=== PATIENT | male | born 1935 | race Caucasian/White ===

== ENCOUNTER 2017-12-06 13:23 | Inpatient (IN) | payer MEDICARE, BC ==
[~2017-12-06] VITALS: Ht 175.4 cm; Wt 92.9 kg
[~2017-12-06 13:23] MED LIST: ALDACTONE 25MG25 M1 PO; ALLEGRA180 MG PO; ASPIRIN 81M81 MG/TA2 PO; ASPIRIN E.C. 8181 MG PO; BETAPACE 80MG80 MG PO; BRILINTA90 MG PO; CAPOTEN 12.512.5 MG PO; COUMADIN 2MG2 MG/TAB; COUMADIN 3MG3 MG/TAB PO; COUMADIN 5MG5 MG/TAB PO; COUMADIN1 MG PO; CRESTOR40 MG PO; FLOMAX 0.40.4 MG/CAP PO; IRON324 M1 PO; LANOXIN0.25 MG PO; LIPITOR20 MG PO; LOPRESSOR 550 MG/TAB PO; LOVENOX 100100 MG/ML SQ; MASON NATURAL1200 MG PO; METOPROLOL SR100 MG PO; MULTIPLE VITAMI1 CAP PO; NORCO 325 MG-51 TAB PO; OMEGA-3 FISH1200 MG PO; PERCOCET 325 MG1 TA2 PO; PROVENTIL0.09 MG/A1 IH; PYRIDIUM 100MG100 MG PO; RED YEAST RICE600 MG PO; SUPER EPA 1201200 MG PO; TRICOR145 MG PO; TRILIPIX 135MG PO; VISION VITAMINS1 TA1 PO; ZESTRIL 10MG10 MG PO; ZYRTEC 10MG10 MG PO
[2017-12-06 14:05] LABS: HEMATOCRIT 43.2 % (42.0-52.0); HEMOGLOBIN 14.6 g/dl (13.5-18.0); MEAN CELL VOLUME 90 fl (80.0-100.0); MEAN CORPUSCULAR HEMOGLOBIN 30 pg (27.0-31.0); MEAN CORPUSCULAR HGB CONC 34 g/dl (33.0-37.0); MEAN PLATELET VOLUME 10.4 fl (7.4-10.4); PLATELET COUNT 281 K/mm3 (130-400); RED BLOOD COUNT 4.81 M/mm3 (4.20-5.60); REDCELL DISTRIBUTION WIDTH-CV 13.3 % (11.5-14.5)
[2017-12-06 14:15] LABS: ALBUMIN 4.1 gm/dL (3.5-5.0); BILIRUBIN,TOTAL 0.6 mg/dL (0.0-1.0); CALCIUM 9.1 mg/dL (8.4-10.2); CREATININE, serum 1.41 mg/dL (0.66-1.25); MAGNESIUM 1.9 mg/dL (1.6-2.3); PHOSPHOROUS 3.3 mg/dL (2.5-4.5); POTASSIUM 4.4 mmol/L (3.4-5.0); TOTAL PROTEIN 7.1 gm/dL (6.4-8.2)
[2017-12-06 14:30] LABS: TROPONIN-I 0.073 ng/mL (0.000-0.034)
[2017-12-06 14:45] LABS: TSH w REFLEX 1.68 uIU/mL (0.465-4.680)
[2017-12-06 15:05] LABS: BAND 2 % (0-10); EOSINOPHIL 3 % (0-4); LYMPHOCYTE 47 % (20.0-51.0); NEUTROPHILS 44 % (42.0-75.2); PLATELET ESTIMATE NORMAL (NORMAL)
[2017-12-06 15:42] LABS: PARTIAL THROMBOPLASTIN TIME 28.5 SECONDS (26.0-37.0)
[2017-12-06] MEDS ORDERED: LIPITOR20 MG PO (16:32)
[2017-12-06] MEDS ORDERED: PLAVIX 75MG TAB75 MG PO (16:33)
[2017-12-06] MEDS ORDERED: FLORAJEN A20 Billion PO (16:33)
[2017-12-06] MEDS ORDERED: TOPROL XL 25MG25 MG PO (16:34)
[2017-12-06] MEDS ORDERED: TIKOSYN0.25 MG PO (16:34)
[2017-12-06] MEDS ORDERED: FLONASEALLERGY NS (16:37)
[2017-12-06] MEDS ORDERED: ZYRTEC 10MG10 MG PO (16:38)
[2017-12-06] MEDS ORDERED: ALLEGRA ALLERG180 MG PO (16:39)
[2017-12-06] MEDS ORDERED: MULTIPLE VITAMI1 TA5 PO (16:39)
[2017-12-06] MEDS ORDERED: VISION VITAMINS1 TA1 PO (16:39)
[2017-12-06 17:32] VITALS: BP 125/79; PULSE 53; TEMP 97.8
[2017-12-06 17:39] LABS: PH 5 (5-8); SQUAMOUS EPITHELIAL None Seen /hpf; URINE APPEARANCE Clear; URINE BACTERIA None Seen /hpf; URINE BILIRUBIN Negative (NEGATIVE); URINE BLOOD Negative (NEGATIVE); URINE COLOR Yellow; URINE GLUCOSE Negative (NEGATIVE); URINE KETONE Negative (NEGATIVE); URINE LEUKOCYTE ESTERASE Negative (NEGATIVE); URINE NITRATE Negative (NEGATIVE); URINE PROTEIN(semi-quant) Negative (NEGATIVE); URINE RBC 0-2 /hpf; URINE UROBILINOGEN Negative (NEGATIVE)
[2017-12-06 19:11] LABS: COLLECTION METHOD CLEAN CATCH
[2017-12-06 20:46] LABS: TROPONIN-I 6 HR POST INITIAL 0.062 ng/mL (0.000-0.034)
[2017-12-06 21:23] VITALS: BP 121/62; PULSE 95; TEMP 98.1
[2017-12-07] VITALS (8 sets, daily range): BP systolic 82–143; BP diastolic 40–81; PULSE 58–106; TEMP 97.4–98.2
[2017-12-07 01:05] LABS: CREATINE KINASE < 20 U/L (55-170)
[2017-12-07 01:18] LABS: TROPONIN-I 0.053 ng/mL (0.000-0.034)
[2017-12-07 06:59] LABS: INR 1.1 (0.8-3.0); PROTHROMBIN TIME 13.1 SECONDS (9.7-12.8)
[2017-12-07 07:01] LABS: HEMATOCRIT 43.1 % (42.0-52.0); HEMOGLOBIN 14.2 g/dl (13.5-18.0); MEAN CELL VOLUME 90 fl (80.0-100.0); MEAN CORPUSCULAR HEMOGLOBIN 30 pg (27.0-31.0); MEAN CORPUSCULAR HGB CONC 33 g/dl (33.0-37.0); MEAN PLATELET VOLUME 10.5 fl (7.4-10.4); PLATELET COUNT 272 K/mm3 (130-400); REDCELL DISTRIBUTION WIDTH-CV 13.4 % (11.5-14.5)
[2017-12-07 07:05] LABS: ALANINE AMINOTRANSFERASE 38 U/L (21-72); ALBUMIN 3.6 gm/dL (3.5-5.0); ALKALINE PHOSPHATASE 94 U/L (50-136); ANION GAP 8 mmol/L (7-16); AST,SGOT 28 U/L (15-37); BILIRUBIN,TOTAL 0.5 mg/dL (0.0-1.0); BLOOD UREA NITROGEN 37 mg/dL (9-20); CALCIUM 8.6 mg/dL (8.4-10.2); CARBON DIOXIDE 24 mmol/L (22-30); CHLORIDE 107 mmol/L (98-107); CREATININE, serum 1.43 mg/dL (0.66-1.25); GLUCOSE 108 mg/dL (74-106); POTASSIUM 3.9 mmol/L (3.4-5.0); SODIUM 140 mmol/L (137-145); TOTAL PROTEIN 6.4 gm/dL (6.4-8.2)
[2017-12-07 07:32] LABS: TROPONIN-I 0.038 ng/mL (0.000-0.034)
[2017-12-07 08:02] LABS: BAND 15 % (0-10); EOSINOPHIL 1 % (0-4); LYMPHOCYTE 54 % (20.0-51.0); NEUTROPHILS 30 % (42.0-75.2); PLATELET ESTIMATE NORMAL (NORMAL)
[2017-12-07 08:09] LABS: CREATINE KINASE < 20 U/L (55-170)
[2017-12-08] VITALS (10 sets, daily range): BP systolic 100–135; BP diastolic 44–65; PULSE 56–76; TEMP 97.2–98.1
[2017-12-08 07:30] LABS: HEMATOCRIT 40.7 % (42.0-52.0); HEMOGLOBIN 13.4 g/dl (13.5-18.0); MEAN CELL VOLUME 91 fl (80.0-100.0); MEAN CORPUSCULAR HEMOGLOBIN 30 pg (27.0-31.0); MEAN CORPUSCULAR HGB CONC 33 g/dl (33.0-37.0); MEAN PLATELET VOLUME 10.6 fl (7.4-10.4); PLATELET COUNT 270 K/mm3 (130-400); RED BLOOD COUNT 4.46 M/mm3 (4.20-5.60); REDCELL DISTRIBUTION WIDTH-CV 13.5 % (11.5-14.5)
[2017-12-08 07:48] LABS: CALCIUM 8.5 mg/dL (8.4-10.2); CREATININE, serum 1.52 mg/dL (0.66-1.25); POTASSIUM 4.2 mmol/L (3.4-5.0)
[2017-12-08 07:50] LABS: INR 1.2 (0.8-3.0); PROTHROMBIN TIME 13.6 SECONDS (9.7-12.8)
[2017-12-08 10:18] LABS: BAND 18 % (0-10); LYMPHOCYTE 55 % (20.0-51.0); NEUTROPHILS 27 % (42.0-75.2); PLATELET ESTIMATE NORMAL (NORMAL)
[2017-12-09 00:29] VITALS: BP 126/62; PULSE 99; TEMP 98.3
[2017-12-09 03:05] VITALS: BP 123/53; PULSE 60; TEMP 98.4
[2017-12-09 07:47] VITALS: BP 135/62; PULSE 60; TEMP 97.8
[2017-12-09 08:01] LABS: HEMATOCRIT 43.1 % (42.0-52.0); INR 1.3 (0.8-3.0); MEAN CELL VOLUME 92 fl (80.0-100.0); MEAN CORPUSCULAR HEMOGLOBIN 30 pg (27.0-31.0); MEAN CORPUSCULAR HGB CONC 33 g/dl (33.0-37.0); MEAN PLATELET VOLUME 10.8 fl (7.4-10.4); PLATELET COUNT 289 K/mm3 (130-400); PROTHROMBIN TIME 14.7 SECONDS (9.7-12.8); RED BLOOD COUNT 4.68 M/mm3 (4.20-5.60); REDCELL DISTRIBUTION WIDTH-CV 13.7 % (11.5-14.5)
[2017-12-09 08:07] LABS: CALCIUM 8.7 mg/dL (8.4-10.2); CREATININE, serum 1.43 mg/dL (0.66-1.25)
[2017-12-09 10:31] LABS: BAND 7 % (0-10); BASOPHIL 3 % (0-2); EOSINOPHIL 1 % (0-4); LYMPHOCYTE 55 % (20.0-51.0); NEUTROPHILS 30 % (42.0-75.2)
[2017-12-09 10:32] LABS: PLATELET ESTIMATE NORMAL (NORMAL)
[2017-12-09 11:53] VITALS: BP 144/73; PULSE 57; TEMP 97.8
[2017-12-09 16:24] VITALS: BP 145/45; PULSE 57; TEMP 98.8
[2017-12-09 19:54] VITALS: BP 147/49; PULSE 58; TEMP 97.6
[2017-12-10] VITALS: BP 135/58; PULSE 62; TEMP 98.3
[2017-12-10 04:18] VITALS: BP 131/56; PULSE 55; TEMP 98
[2017-12-10 06:43] LABS: HEMATOCRIT 39.5 % (42.0-52.0); HEMOGLOBIN 12.8 g/dl (13.5-18.0); MEAN CELL VOLUME 92 fl (80.0-100.0); MEAN CORPUSCULAR HEMOGLOBIN 30 pg (27.0-31.0); MEAN CORPUSCULAR HGB CONC 32 g/dl (33.0-37.0); MEAN PLATELET VOLUME 10.6 fl (7.4-10.4); PLATELET COUNT 251 K/mm3 (130-400); RED BLOOD COUNT 4.31 M/mm3 (4.20-5.60); REDCELL DISTRIBUTION WIDTH-CV 13.3 % (11.5-14.5)
[2017-12-10 06:50] LABS: INR 1.6 (0.8-3.0); PROTHROMBIN TIME 18.9 SECONDS (9.7-12.8)
[2017-12-10 06:54] LABS: CALCIUM 8.6 mg/dL (8.4-10.2); CREATININE, serum 1.36 mg/dL (0.66-1.25); POTASSIUM 4.2 mmol/L (3.4-5.0)
[2017-12-10 08:05] LABS: BAND 8 % (0-10); BASOPHIL 2 % (0-2); EOSINOPHIL 2 % (0-4); LYMPHOCYTE 57 % (20.0-51.0); NEUTROPHILS 30 % (42.0-75.2); PLATELET ESTIMATE NORMAL (NORMAL)
[2017-12-10 08:36] VITALS: BP 140/38; PULSE 63; TEMP 97.5
[2017-12-10] MEDS ORDERED: COUMADIN 5MG5 MG/TAB PO (09:55)
[2017-12-10] MEDS ORDERED: LOVENOX120 MG/0.8 SQ (09:55)
== END 2017-12-10 14:09 | disposition home or self-care (01) | DRG 281 ==
LOC: COL.ER 13:23 → MEDICAL 15:25
PROVIDERS: Emergency Medicine; Family Medicine; Internal Medicine Cardiovascular Disease; Nurse Practitioner Family; Physician Assistant
PROC: 5A2204Z Restoration of Cardiac Rhythm, Single (ICD-10-PCS; principal; 2017-12-07)
DX: I48.0 Paroxysmal atrial fibrillation (principal); I21.4 Non-ST elevation (NSTEMI) myocardial infarction; C91.10 Chronic lymphocytic leukemia of B-cell type not having achieved remission; I12.9 Hypertensive chronic kidney disease with stage 1 through stage 4 chronic kidney disease, or unspecified chronic kidney disease; N18.9 Chronic kidney disease, unspecified; I25.10 Atherosclerotic heart disease of native coronary artery without angina pectoris; Z85.51 Personal history of malignant neoplasm of bladder; Z87.891 Personal history of nicotine dependence; Z95.5 Presence of coronary angioplasty implant and graft; N40.1 Benign prostatic hyperplasia with lower urinary tract symptoms; R35.0 Frequency of micturition
CPT/HCPCS: 99232-AI; 99233-AI; 99239; A9502; G0378; G8987-GO; G8989-GO; J1650; J1940; J2250; J2785; J3010

== ENCOUNTER 2018-01-04 10:07 | Day surgery (SDC) | payer MEDICARE, BC ==
[~2018-01-04] VITALS: Ht 175.6 cm; Wt 90.0 kg
[2018-01-04] VITALS (7 sets, daily range): BP systolic 110–129; BP diastolic 40–94; PULSE 53–103; TEMP 97.8–97.9
[~2018-01-04 10:07] MED LIST changes: +ALLEGRA ALLERG180 MG PO; +FLONASEALLERGY NS; +FLORAJEN A20 Billion PO; +LOVENOX120 MG/0.8 SQ; +MULTIPLE VITAMI1 TA5 PO; +PLAVIX 75MG TAB75 MG PO; +TIKOSYN0.25 MG PO; +TOPROL XL 25MG25 MG PO
[2018-01-04 11:10] LABS: HEMATOCRIT 45.2 % (42.0-52.0); HEMOGLOBIN 14.7 g/dl (13.5-18.0); MEAN CELL VOLUME 90 fl (80.0-100.0); MEAN CORPUSCULAR HEMOGLOBIN 29 pg (27.0-31.0); MEAN CORPUSCULAR HGB CONC 33 g/dl (33.0-37.0); MEAN PLATELET VOLUME 10.5 fl (7.4-10.4); PLATELET COUNT 281 K/mm3 (130-400); REDCELL DISTRIBUTION WIDTH-CV 13.9 % (11.5-14.5)
[2018-01-04 11:15] LABS: INR 1.1 (0.8-3.0); PROTHROMBIN TIME 12.3 SECONDS (9.7-12.8)
[2018-01-04 11:31] LABS: CALCIUM 9.1 mg/dL (8.4-10.2); CREATININE, serum 1.3 mg/dL (0.66-1.25); POTASSIUM 4.5 mmol/L (3.4-5.0)
[2018-01-04] MEDS ORDERED: PLAVIX 75MG TAB75 MG PO (12:18)
[2018-01-04] MEDS ORDERED: COUMADIN 5MG5 MG/TAB PO (13:25)
== END 2018-01-04 15:16 | disposition home or self-care (01) ==
LOC: COL.CAR 10:07
PROVIDERS: Internal Medicine Cardiovascular Disease
DX: I48.0 Paroxysmal atrial fibrillation (principal); I34.0 Nonrheumatic mitral (valve) insufficiency; I25.5 Ischemic cardiomyopathy; E78.5 Hyperlipidemia, unspecified; J44.9 Chronic obstructive pulmonary disease, unspecified; I12.9 Hypertensive chronic kidney disease with stage 1 through stage 4 chronic kidney disease, or unspecified chronic kidney disease; N18.9 Chronic kidney disease, unspecified; Z79.01 Long term (current) use of anticoagulants; Z79.82 Long term (current) use of aspirin; Z88.8 Allergy status to other drugs, medicaments and biological substances; Z87.891 Personal history of nicotine dependence; Z85.51 Personal history of malignant neoplasm of bladder
CPT/HCPCS: G9654; J2704

== ENCOUNTER 2019-09-06 08:42 | Observation (INO) | payer MEDICARE, BC ==
[~2019-09-06] VITALS: Ht 175.3 cm; Wt 90.5 kg
[2019-09-06] VITALS (310 sets, daily range): BP systolic 115–161; BP diastolic 72–100; PULSE 58–95; TEMP 97.4–98.4; O2SAT 83–99
[2019-09-06] MEDS ORDERED: MAGNESIUM250 M1 PO (09:15)
[2019-09-06] MEDS ORDERED: ASPIRIN E.C. 8181 MG PO (09:15)
[2019-09-06] MEDS ORDERED: PRILOSEC10 MG PO (09:16)
[2019-09-06] MEDS ORDERED: COZAAR 50MG50 MG/TAB PO (09:16)
[2019-09-06] MEDS ORDERED: ZYRTEC 10MG10 MG PO (09:17)
[2019-09-06 09:45] LABS: HEMATOCRIT 43.7 % (42.0-52.0); MEAN CELL VOLUME 87 fl (80.0-100.0); MEAN CORPUSCULAR HEMOGLOBIN 28 pg (27.0-31.0); MEAN CORPUSCULAR HGB CONC 32 g/dl (33.0-37.0); MEAN PLATELET VOLUME 10.1 fl (7.4-10.4); PLATELET COUNT 269 K/mm3 (130-400); REDCELL DISTRIBUTION WIDTH-CV 15.3 % (11.5-14.5)
[2019-09-06 09:52] LABS: CALCIUM 8.6 mg/dL (8.4-10.2); CREATININE, serum 1.3 (0.66-1.25); POTASSIUM 4.2 mmol/L (3.4-5.0)
[2019-09-06 09:55] LABS: PROTHROMBIN TIME 11.6 SECONDS (9.7-12.8)
--- NOTE | 2019-09-06 11:24 | NUR ---
ALL MEDICATIONS GIVEN VORB WITH MD. SEE MERGE FOR ALL MEDICATION ADMIN TIMES. SEE MERGE FOR ALL RASS ASSESSMENTS DURING AND POST PROCEDURE. NITRO PASTE APPLIED PRIOR TO PROCEDURE,REFER TO MAR.
--- NOTE | 2019-09-06 14:23 | NUR ---
SENIOR MEDICAL BILLING SPECIALIST student met with the patient and his Tracie to discuss a discharge plan. The patient lives in [place] with his , Tracie. The patient does not use DME and reports independence with ADLs. The patient's PCP is VINNY Rodriguez and receives medications from [facility] with no difficulties. The patient has advanced directives in the EMR. The patient plans to return home upon discharge with Tracie providing transportation. SW will continue to follow to ensure a safe discharge.
--- NOTE | 2019-09-06 15:36 | NUR ---
PT C/O CONTINUED PAGED [id number]: RETURNED CALL FROM WITH ORDERS.
--- NOTE | 2019-09-06 19:20 | NUR ---
REPORT GIVEN TO FINN CUEAVS.
[2019-09-07] VITALS (761 sets, daily range): BP systolic 102–156; BP diastolic 60–103; PULSE 90–114; TEMP 97.4–98.6; O2SAT 81–99
[2019-09-07 06:17] LABS: HEMATOCRIT 45.5 % (42.0-52.0); HEMOGLOBIN 14.7 g/dl (13.5-18.0); MEAN CELL VOLUME 85 fl (80.0-100.0); MEAN CORPUSCULAR HEMOGLOBIN 28 pg (27.0-31.0); MEAN CORPUSCULAR HGB CONC 32 g/dl (33.0-37.0); MEAN PLATELET VOLUME 10.3 fl (7.4-10.4); PLATELET COUNT 284 K/mm3 (130-400); RED BLOOD COUNT 5.33 M/mm3 (4.20-5.60); REDCELL DISTRIBUTION WIDTH-CV 15.3 % (11.5-14.5)
[2019-09-07 06:32] LABS: CALCIUM 8.9 mg/dL (8.4-10.2); CREATININE, serum 1.18 (0.66-1.25); POTASSIUM 4.1 mmol/L (3.4-5.0)
[2019-09-07 06:56] LABS: BAND 2 % (0-10); EOSINOPHIL 2 % (0-4); LYMPHOCYTE 39 % (20.0-51.0); NEUTROPHILS 51 % (42.0-75.2); PLATELET ESTIMATE NORMAL (NORMAL)
--- NOTE | 2019-09-07 08:00 | NUR ---
PT A&O X4, DENIES PAIN, BUT STATES HE WAS HAVING TROUBLE BREATHING DURING THE NIGHT ESPECIALLY WHEN LAYING DOWN; CURRENTLY VSS. RIGHT RADIAL SITE IS STILL COVERED FROM YESTERDAYS BANDAGE WITH 2X2 GAUZE WITH TEGADERM COVERING; ONE PEA-SIZED SPOT OF DRIED DRAINAGE FROM 1900 LAST PM (CIRCLED WITH MARKER FROM NIGHT-SHIFT NURSE).
--- NOTE | 2019-09-07 10:28 | NUR ---
Initial visit; Patient and his thanked Talent Development Consultant for looking in on him and offering encouragement and prayer. Talent Development Consultant will keep him in her prayers.
--- NOTE | 2019-09-07 15:20 | NUR ---
PT STOOD UP TO USE URINAL AND LIKE ALL TIMES TODAY WHEN PT STANDS IS TACHYCARDIC. HOWEVER, ON THIS OCCATION HR WAS SUSTAINED FOR TEN MINUTES OVER 120-146. WAS CONTACTED; PT TO ORALLY HYDRATE AND WILL REMAIN IMCU STATUS. WILL CONTINUE TO MONITOR PT.
--- NOTE | 2019-09-07 23:48 | NUR ---
PT RESTING IN BED VSS AT THIS TIME, DENIES PAIN AND SOA. PT ABLE TO STAND AT BEDSIDE TO USE URINAL INDEPENDENTLY. PT REMAINS ON O2 @ 2L. WILL CONTINUE TO MONITOR PT STATUS AND UPDATE PROVIDERS NEEDED.
[2019-09-08] VITALS (294 sets, daily range): BP systolic 118–134; BP diastolic 71–87; PULSE 75–95; TEMP 97.4–98.4; O2SAT 89–98
--- NOTE | 2019-09-08 07:30 | NUR ---
Report received from FINN Padilla.
--- NOTE | 2019-09-08 08:00 | NUR ---
Assessment completed. Pt in bed, awake. Denies any pain at this time. HR Afib on monitor. Denies any SOB at this time. Right radial dressing with old drainage noted. No hematoma noted. Discussed plan of care with pt r/t medications on shift and possible discharge today. pt verbalized understanding. Pt education done on CHF. Discussed s/s to look for, weighing himself every day, looking for edema and signs of SOB. Pt states he does not weigh himself or check BP every day. Explained importance of checking weight and monitoring BP. Pt's stated he will start checking weight and BP at home. Call light in reach, breakfast ordered.
[2019-09-08] MEDS ORDERED: TOPROL XL 50MG50 MG PO (09:40)
[2019-09-08] MEDS ORDERED: BRILINTA90 MG PO (09:40)
--- NOTE | 2019-09-08 10:08 | NUR ---
Called Dr Sevilla's nurse, Antonette. Pt's SBP 80s. HR Afib 90s. Pt c/o being tired. Will discuss with Dr Sevilla and call back.
--- NOTE | 2019-09-08 10:11 | NUR ---
Dr Sevilla's nurse Antonette called back. Dr Sevilla for pt to go home if he is not symptomatic with SBP 80s.
--- NOTE | 2019-09-08 10:16 | NUR ---
Assisted pt out of chair to toilet. Pt denies any dizzyness or feeling lightheaded. Pt's in room with him. CAll light in reach.
--- NOTE | 2019-09-08 10:36 | NUR ---
Pt back to chair. Denies any dizzyness or feeling lightheaded. Pharmacist in room explaining new medications with pt and pt's in room.
--- NOTE | 2019-09-08 10:59 | NUR ---
Discussed discharge paperwork, education, medications and follow up appointments with pt and pt's . Answered all questions to pt's satisfcation. Pt verbalized understanding. Pt will weight himself and check his BP at home. Pt signed discharge forms.
--- NOTE | 2019-09-08 11:05 | NUR ---
Pt discharged from ICU. Pt left unit via wheelchair to POV driven by spouse.
== END 2019-09-08 11:05 | disposition home or self-care (01) ==
LOC: COL.CAR 08:42 → ICU 12:17 → COL.CAR 09-07 12:48 → ICU 09-07 12:48
PROVIDERS: Nurse Practitioner; ADMIT Internal Medicine Cardiovascular Disease
DX: I25.10 Atherosclerotic heart disease of native coronary artery without angina pectoris (principal); Z95.5 Presence of coronary angioplasty implant and graft; I48.20 Chronic atrial fibrillation, unspecified; R94.39 Abnormal result of other cardiovascular function study; Z85.51 Personal history of malignant neoplasm of bladder; M10.9 Gout, unspecified; Z85.6 Personal history of leukemia; Z88.8 Allergy status to other drugs, medicaments and biological substances; Z79.82 Long term (current) use of aspirin; Z79.51 Long term (current) use of inhaled steroids; E78.2 Mixed hyperlipidemia; Z88.0 Allergy status to penicillin
CPT/HCPCS: OP; C1769; C1874; C1887; C9600; G0378; J0583; J1644; J1940; J2250; J3010; Q9967

== ENCOUNTER 2020-08-06 08:13 | Day surgery (SDC) | payer MEDICARE, BC ==
[2020-08-06] VITALS (12 sets, daily range): BP systolic 113–142; BP diastolic 56–92; PULSE 53–82; TEMP 97.4–98
[~2020-08-06] VITALS: Ht 175.3 cm; Wt 93.2 kg
[~2020-08-06 08:13] MED LIST changes: +COZAAR 50MG50 MG/TAB PO; +MAGNESIUM250 M1 PO; +PRILOSEC10 MG PO; +TOPROL XL 50MG50 MG PO
[2020-08-06] MEDS ORDERED: COZAAR 25MG25 MG/TAB PO (09:06)
[2020-08-06] MEDS ORDERED: TOPROL XL100 MG PO (09:08)
[2020-08-06] MEDS ORDERED: PROTONIX20 MG PO (09:10)
[2020-08-06] MEDS ORDERED: PLAVIX 75MG TAB75 MG PO (09:10)
[2020-08-06] MEDS ORDERED: OCEAN NASAL SPR45 ML NS (09:11)
--- NOTE | 2020-08-06 12:30 | NUR ---
Patient up to room 346 by bed from OR. Alert and oriented x 3. Assessment complete. [place] to dependent drainge with CBI infusing at slow rate, urine pink tinged. Post op VSS. Fluids infusing per orders to left hand IV. Denies further needs at this time. Will continue to monitor.
--- NOTE | 2020-08-06 14:46 | NUR ---
Patient complains of pain 8/10 and feeling like he needs to pee. Urine flowing freely, CBI continues to infuse at slow rate. Contacted Dr. Garrett for orders. Medication given per orders. Will continue to monitor.
--- NOTE | 2020-08-06 18:04 | NUR ---
Patient has done well throughout the day. [place] maintained to dependent drainage with clear pink urine in bag. Urine occassionally dark when up out of bed. Spouse at bedside throughout the day. Denies pain at this time. CBI continues infusing at slow rate. Denies further needs at this time. Will report off to bioengineer.
--- NOTE | 2020-08-06 21:30 | NUR ---
PT IN BED. TAKES HS MEDS AT THIS TIME INCLUDING PERCOCET FOR PAIN. IS ALERT AND ORIENTED X4. FLUIDS CAPPED TO LEFT HAND AT THIS TIME. TAKING ORAL FLUIDS WELL. HAS BLANCHARD TO BSD WITH CBI INFUSING, URINE IS PINK, CBI SLOW. BLANCHARD CARES PROVIDED.
--- NOTE | 2020-08-07 03:00 | NUR ---
PT DENIES NEED FOR PAIN MEDS AT THIS TIME.
[2020-08-07 04:13] VITALS: BP 127/61; PULSE 76; TEMP 97.6
--- NOTE | 2020-08-07 06:08 | NUR ---
Primed fong catheter with 200cc of sterile saline. Removed catheter after deflating balloon. Pt instructed on use of urinal and 6 cup specimens. Up in room at this time.
--- NOTE | 2020-08-07 07:30 | NUR ---
Patient resting in bedside recliner at this time. Patient is alert and oriented, answers questions appropriately. Patient voided approximately 150 ml of bloody urine. Patient reports burning with urination and states he feels that it is hard to void. Encouraged patient to drink plenty of fluids and discussed the fact that urination may take time since his fong was just removed. Patient verbalized understanding. Denies further needs at this time, call light within reach.
[2020-08-07 08:44] VITALS: BP 121/81; PULSE 85; TEMP 97.3
--- NOTE | 2020-08-07 10:50 | NUR ---
First visit from the police investigator. No needs right now.
[2020-08-07 11:47] VITALS: BP 112/62; PULSE 81; TEMP 97.9
--- NOTE | 2020-08-07 14:44 | NUR ---
Discharge teaching completed. Discussed discharge instructions, follow up appointment, and indications of complications and what to do if they arise. Patient and verbalized understanding, denied further questions or concerns. INT removed from right hand, catheter intact, hemostasis achieved. Patient escorted to ED entrance where he entered a private vehicle.
== END 2020-08-07 14:58 | disposition home or self-care (01) ==
LOC: SDCO 08:13 → SURG 12:38 → SDCO 08-07 14:58
DX: N21.0 Calculus in bladder (principal); N40.1 Benign prostatic hyperplasia with lower urinary tract symptoms; R39.12 Poor urinary stream; R35.1 Nocturia; I25.2 Old myocardial infarction; J44.9 Chronic obstructive pulmonary disease, unspecified; I25.10 Atherosclerotic heart disease of native coronary artery without angina pectoris; I34.0 Nonrheumatic mitral (valve) insufficiency; C91.10 Chronic lymphocytic leukemia of B-cell type not having achieved remission; E78.00 Pure hypercholesterolemia, unspecified; I48.91 Unspecified atrial fibrillation; I11.0 Hypertensive heart disease with heart failure; I50.9 Heart failure, unspecified; I35.0 Nonrheumatic aortic (valve) stenosis; K21.9 Gastro-esophageal reflux disease without esophagitis; Z20.828 Contact with and (suspected) exposure to other viral communicable diseases; Z85.51 Personal history of malignant neoplasm of bladder; Z79.899 Other long term (current) drug therapy; Z86.19 Personal history of other infectious and parasitic diseases; Z79.82 Long term (current) use of aspirin; Z79.02 Long term (current) use of antithrombotics/antiplatelets; Z88.8 Allergy status to other drugs, medicaments and biological substances; Z87.891 Personal history of nicotine dependence; Z95.5 Presence of coronary angioplasty implant and graft
CPT/HCPCS: OP; J0690; J2370; J2405; J2704; J3010; J7030